=== PATIENT | female | born 1975 | race Caucasian/White ===

== ENCOUNTER 2023-09-05 05:45 | Day surgery (SDC) | payer BC, MEDICAID ==
[~2023-09-05] VITALS: Ht 165.1 cm; Wt 83.0 kg
[2023-09-05] MEDS ORDERED: ACETAMINOPHEN 500 MG TABLET ONE (05:57)
[2023-09-05] MEDS ORDERED: CELECOXIB 100 MG CAPSULE ONE (05:57)
[2023-09-05] MEDS: ACETAMINOPHEN 500 MG TABLET PO ONE (06:30)
[2023-09-05] MEDS: CELECOXIB 100 MG CAPSULE PO ONE (06:30)
[2023-09-05 06:33] LABS: BASOPHILS % (AUTO) 0.7 % (0.0-2.0); EOSINOPHILS # (AUTO) 0.4 K/uL (0.0-0.4); EOSINOPHILS % (AUTO) 5.5 % (0.0-4.0); HEMOGLOBIN 13.1 g/dL (12.0-16.0); LYMPHOCYTES # (AUTO) 1.8 K/uL (1.0-5.5); LYMPHOCYTES % (AUTO) 28.3 % (20.5-51.5); MEAN CORPUSCULAR HEMOGLOBIN 32 pg (27-31); MEAN CORPUSCULAR HGB CONC 34 % (32-36); MEAN CORPUSCULAR VOLUME 94 fL (79.0-98.0); MONOCYTES # (AUTO) 0.5 K/uL (0.0-1.0); MONOCYTES % (AUTO) 8.5 % (1.7-9.3); NEUTROPHILS # (AUTO) 3.7 K/uL (1.8-7.7); PLATELET COUNT (AUTO) 231 K/uL (130-430); RED BLOOD CELL COUNT(AUTO) 4.14 MIL/uL (4.2-6.2); RED CELL DISTRIBUTION WIDTH 13.5 % (9.0-15.0); WHITE BLOOD COUNT (AUTO) 6.4 K/uL (4.8-10.8)
[2023-09-05 06:44] LABS: CALCIUM 8.4 mg/dL (8.4-11.0); CREATININE 0.61 mg/dL (0.55-1.30); POTASSIUM 4.1 mmol/L (3.5-5.1)
[2023-09-05] MEDS ORDERED: CEFAZOLIN SOD 2 GM in D5W 50 ML IV ONE (07:00)
[2023-09-05] MEDS ORDERED: oxyCODONE HCL 10 MG TAB.ER.12H PO ONE (07:00)
[2023-09-05] MEDS ORDERED: DEXAMETHASONE SOD PHOSPHATE 4 MG/ML VIAL ONE (07:20)
[2023-09-05] MEDS ORDERED: ACETAMINOPHEN I.V. 1000 MG 100 ML IV ONE (07:39)
[2023-09-05] MEDS ORDERED: MEPERIDINE HCL/PF 25 MG/ML DISP.SYRIN IVP PRN (08:15)
[2023-09-05] MEDS ORDERED: LR 1,000 ML IV SCH (08:15)
[2023-09-05] MEDS ORDERED: MIDAZOLAM HCL 2 MG/2 ML VIAL (VERSED) IVP PRN (08:15)
[2023-09-05] MEDS ORDERED: HYDROmorphone 1 MG/ML INJ. CARTRIDGE IVP PRN (08:15)
[2023-09-05] MEDS ORDERED: METOCLOPRAMIDE HCL 10 MG/2 ML VIAL IVP PRN (08:15)
[2023-09-05] MEDS: LABETALOL 100 MG/ 20ML VIAL IVP PRN (09:12)
[2023-09-05] MEDS ORDERED: LABETALOL HCL 20 MG/4 ML CARTRIDGE IVP ONE (09:20)
[2023-09-05] MEDS ORDERED: HYDROmorphone 1 MG/ML INJ. CARTRIDGE ONE ×3 (09:39→14:03)
[2023-09-05] MEDS: HYDROmorphone 1 MG/ML INJ. CARTRIDGE IVP PRN (09:40)
[2023-09-05] MEDS ORDERED: hydrALAZINE HCL 20 MG/ML VIAL ONE (09:48)
[2023-09-05] MEDS: hydrALAZINE HCL 20 MG/ML VIAL IVP PRN (09:50)
[2023-09-05 10:52] VITALS: O2SAT 96
[2023-09-05 15:57] VITALS: BP_SYST 133; PULSE 77; RESP 17
== END 2023-09-05 14:35 | disposition home or self-care (01) ==
LOC: SDS 05:45 → SMU 05:45 → SDS 14:35
PROVIDERS: ATTEND Student in an Organized Health Care Education/Training Program
DX: S52.592P Other fractures of lower end of left radius, subsequent encounter for closed fracture with malunion (principal); I10 Essential (primary) hypertension; F17.210 Nicotine dependence, cigarettes, uncomplicated; E66.9 Obesity, unspecified; J45.909 Unspecified asthma, uncomplicated; Z90.710 Acquired absence of both cervix and uterus; Z90.49 Acquired absence of other specified parts of digestive tract; Z98.891 History of uterine scar from previous surgery; Z98.890 Other specified postprocedural states; Z68.30 Body mass index [BMI] 30.0-30.9, adult; Z83.3 Family history of diabetes mellitus; X58.XXXD Exposure to other specified factors, subsequent encounter
CPT/HCPCS: 87081; 25400; 29125; 80048; 85025; 36415; J3490; J0690; J1100; J0360; J1885; J3465; J2405; J2704; J3010; J1170; J7060; J7120; L3650; C1713 ×9; J0131; 76000